=== PATIENT | female | born 1950 | race Caucasian/White ===

== ENCOUNTER → 2019-04-24 12:02 | Day surgery (SDC) | payer OTHER ==
[~2019-04-24 12:02] MED LIST: Buffered Lidocaine 1% SYRIN* 1 ML/SYRINGE INTRADERM ONE; Dexmedetomidine* 200 MCG/2 ML 2 ML VIAL ONE; Lactated Ringers 1000 ML Bag* 1,000 ML IV SCH; Levalbuterol 0.63MG/3ML NEB* UNIT OF USE INH ONE; Midazolam* 1 MG/ML 2 ML VIAL (2 MG) ONE; Sodium Chloride 0.9%* 10 ML ONE
[2019-04-24 17:07] VITALS: BP 96/74
--- NOTE | 2019-04-24 23:11 | PRO ---
CC: Dr. Cuba; ANNIE Barker * DATE OF PROCEDURE: 04/24/19 - [facility] PROCEDURE: Colonoscopy with submucosal injection, cold snare polypectomy, Hemoclip placement x2, and biopsy. REFERRING PROVIDER: Dr. Cuba and ANNIE Barker. INDICATION: The patient has a history of polyps. Last colonoscopy in 2011 was noted to be challenging. Multiple hyperplastic polyps were removed. The patient reports that she had an incomplete colonoscopy a number of years ago. She was noted recently to have iron-deficiency anemia of unclear etiology. She denies any GI symptoms other than chronic GERD. She is on Eliquis, which was held 2 days ago. MEDICATIONS GIVEN: By Anesthesia. DESCRIPTION OF PROCEDURE: Full disclosure of risks was reviewed with the patient as detailed on the consent form. The patient was placed in the left lateral decubitus position and monitored with continuous pulse oximetry, capnography, interval blood pressure monitoring, and direct observation. After anorectal examination was performed, the adult colonoscope was inserted into the rectum and slowly advanced forward to the level of the cecum. Complete views of the cecum were obtained, including the medial wall between the IC valve and the appendiceal orifice. Quality of the prep was fair. Photodocumentation of landmarks obtained. Careful inspection was made as the colonoscope was withdrawn. Retroflexion was performed in the rectum. Findings and interventions are described below. FINDINGS: Anorectal exam was notable for small external hemorrhoids and external anal skin tags. The scope was inserted into the rectum and slowly advanced forward. Procedure was moderately challenging. Abdominal pressure was used at several points with modest success. The scope was eventually able to reach the cecum. Cecum was unremarkable in appearance. Scope was then slowly withdrawn. In the ascending colon there was a subtle sessile polyp measuring approximately 2 cm. This polyp was lifted with submucosal lifting agent Orise, with good effect. This polyp was challenging to remove gas the snare (several sizes used) would repeatedly skid over the surface of the polyp. I was eventually able to remove the polyp in pieces using the cold snare. A small piece of residual polyp was removed with Jumbo biopsy forceps. Two clips were placed at the polypectomy site for prophylaxis. 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 No AVMs. No colitis. Retroflexion in the rectum revealed small to medium sized internal hemorrhoids. Scope was then withdrawn from the patient. The patient tolerated the procedure well and was recovered in the GI recovery area. IMPRESSION: 1. Complete colonoscopy to cecum. 2. Large sessile polyp in the ascending colon. Polyp was removed piecemeal using cold snare. Two clips placed at the polypectomy site. 3. Potts-diverticulosis. 4. Internal hemorrhoids. FOLLOWUP: 1. Await pathology. 2. Tentatively plan for repeat colonoscopy in 6 months to reassess polypectomy site given size and piecemeal resection. 3. Recommend conservative management of hemorrhoids. 4. No obvious explanation for patient's iron-deficiency anemia identified on this exam. Will schedule the patient for follow-up in clinic to discuss next steps in work-up. Thank you very much for this referral. [id number]/CPS #: [id number] JENY
--- NOTE | 2019-04-24 23:20 | PRO ---
CC: Dr. Cuba; ANNIE Barker * PROCEDURE REPORT: DATE OF PROCEDURE: 04/24/19 PROCEDURE: EGD with biopsy. REFERRING PROVIDER: Dr. Cuba and ANNIE Barker. INDICATION: The patient is considering bariatric surgery and is scheduled for screening EGD. She has a history of chronic reflux managed with omeprazole without any breakthrough symptoms. Recently she was diagnosed with iron deficiency anemia of unclear etiology. MEDICATIONS GIVEN: By Anesthesia. DESCRIPTION OF PROCEDURE: Full disclosure of risks was reviewed with the patient as detailed on the consent form. The patient was placed in the left lateral decubitus position and monitored with continuous pulse oximetry, capnography, interval blood pressure monitoring, and direct observation. A bite -block was placed between the patient's teeth. An adult gastroscope was then inserted into the patient's mouth and advanced down the esophagus, into the stomach, and into the distal duodenum. Findings and interventions are described below. FINDINGS: Esophagus was a tubular structure without rings or strictures. The Z -line was irregular and extended 2 cm above GE junction, which occurred at 34 cm. The scope was then advanced into the small hiatal hernia with the top of the gastric folds at 36 cm. Gastric mucosa was examined in the forward and retroflexed views. There was a round fullness seen in gastric body just proximal to the incisura. Suggestive of extrinsic compression. Overlying mucosa was normal. Biopsies were obtained from the gastric antrum for CLOtest. The scope was then advanced into the duodenum to at least the third portion. In the duodenal bulb, there were 2 small nodules which were biopsied. Otherwise , the duodenal mucosa was unremarkable in appearance. Biopsies were obtained from duodenum to rule out celiac disease given the iron deficiency anemia. Scope was then withdrawn back into the esophagus where biopsies were obtained from irregular Z-line. The scope was then withdrawn from the patient. The patient tolerated the procedure well and was recovered in the GI recovery area. IMPRESSION: 1. Complete upper endoscopy to the distal duodenum. 2. Irregular Z-line. Endoscopically suggestive of Hernandez's esophagus. 3. Rounded fullness seen near the gastric incisura. Favor extrinsic compression , although differential also includes submucosal lesion. 4. Tiny duodenal nodules in the bulb, biopsied. FOLLOWUP: 1. Await pathology. 2. Continue omeprazole daily. 3. Recommend CT abdomen to evaluate for any extrinsic compression on the stomach. Depending on the results of this study, I will consider an EUS, particularly as the patient is contemplating bariatric surgery. Post-bariatric surgery anatomy would make it difficult to access this area of stomach. Thank you very much for this referral. [id number] #: [id number] JENY
== END | disposition home or self-care (01) ==
LOC: OR 12:02
PROVIDERS: ATTEND Internal Medicine Gastroenterology
DX: Z09 Encounter for follow-up examination after completed treatment for conditions other than malignant neoplasm (principal); Z86.010 Personal history of colon polyps; K21.9 Gastro-esophageal reflux disease without esophagitis; K31.7 Polyp of stomach and duodenum; D50.9 Iron deficiency anemia, unspecified; I48.91 Unspecified atrial fibrillation; E66.9 Obesity, unspecified; Z79.01 Long term (current) use of anticoagulants; K57.30 Diverticulosis of large intestine without perforation or abscess without bleeding; K64.8 Other hemorrhoids; K21.0 Gastro-esophageal reflux disease with esophagitis; E66.01 Morbid (severe) obesity due to excess calories; G47.33 Obstructive sleep apnea (adult) (pediatric); I10 Essential (primary) hypertension; I71.4 Abdominal aortic aneurysm, without rupture; Z87.891 Personal history of nicotine dependence; J45.909 Unspecified asthma, uncomplicated; E03.9 Hypothyroidism, unspecified
CPT/HCPCS: 87077; 88305; J2250